=== PATIENT | female | born 1985 | race Caucasian/White ===

== ENCOUNTER → 2018-06-06 | Outpatient (CLI) | payer BC ==
[~2018-06-06] MED LIST: CONTRAST GIVEN. MC PRN; IOHEXOL 350 MG/ML 100 ML VIAL. IV ONE
--- NOTE | 2018-06-06 12:42 | RAD ---
EXAM: Head CT without contrast; CT angiogram of the head with contrast. HISTORY: Headache. Family history of aneurysm. TECHNIQUE: Computed tomographic images of the head were obtained prior to and following the administration of 90 cc Omnipaque 350 intravenous contrast. Three-dimensional maximum intensity projection images were obtained. *One or more of the following individualized dose reduction techniques were utilized for this examination: 1. Automated exposure control. 2. Adjustment of the mA and/or kV according to patient size. 3. Use of iterative reconstruction technique. COMPARISON: None. FINDINGS: The noncontrast images of the head demonstrate no acute or subacute hemorrhage. There is no mass effect or midline shift. There is no hydrocephalus. The smart-white matter differential pattern is intact. The orbits are unremarkable. There is a moderate left maxillary sinus mucous retention cyst. There is minimal focal mucosal thickening involving the right maxillary sinus. The mastoid air cells are clear. No suspicious calvarial lesion is seen. The angiogram images of the head demonstrate no evidence of hemodynamically significant stenosis or aneurysm. There are patent small posterior communicating arteries, a normal variant. The anterior communicating artery is patent and there is a third or early branching A2 segment, a normal variant. There is a tiny vessel coursing along the right A1 segment which may be due to a duplicated A1 segment or incidental venous contamination. The basilar artery is widely patent. The vertebral arteries are codominant. No suspicious enhancing lesion is seen. There are few small arachnoid granulations resulting in an incidental defects within the dural venous sinuses. No dural venous sinus thrombosis seen. There are prominent neck lymph nodes, likely physiologic or reactive in a patient of this age. No suspicious osseous lesion is seen. IMPRESSION: 1. No acute intracranial finding or evidence of hemodynamically significant stenosis or aneurysm involving the intracranial arteries. 2. Normal cerebral vascular anatomic variants, described above. PQRS Compliance Statement - Stenosis calculations for CT, MR and conventional angiography are based upon measurement of the distal ICA diameter in accordance with the NASCET methodology. Stenosis calculations for carotid ultrasound studies are derived from validated velocity criteria which are known to correlate with the NASCET methodology. Electronically signed by: Edith Ward MD (06/06/2018 12:38 PM) [place] [id number]
== END | disposition home or self-care (01) ==
LOC: CT 09:02
PROVIDERS: ATTEND Family Medicine
DX: G43.809 Other migraine, not intractable, without status migrainosus (principal); J34.1 Cyst and mucocele of nose and nasal sinus; Z82.49 Family history of ischemic heart disease and other diseases of the circulatory system
CPT/HCPCS: 70450; 70496; Q9967

== ENCOUNTER 2020-04-03 11:09 | Emergency (ER) | payer BC ==
[~2020-04-03] VITALS: Ht 170.2 cm; Wt 88.0 kg
[2020-04-03 12:00] LABS: BILIRUBIN,URINE NEGATIVE (NEG); CLARITY,URINE CLEAR; COLOR,URINE YELLOW; NITRITE,URINE NEGATIVE (NEG); PH,URINE 6.5 (<5.0-8.0); PROTEIN,URINE NEGATIVE (NEG-TRACE); UROBILINOGEN,URINE 0.2 mg/dL (0.2 mg/dL)
[2020-04-03] MEDS ORDERED: ONDANSETRON PF 4 MG/2 ML VIAL. IVP ONE (12:00)
[2020-04-03] MEDS ORDERED: IV NORMAL SALINE 1000ML BAG 1,000 ML IV ONE (12:00)
[2020-04-03] MEDS ORDERED: MORPHINE SULFATE 10 MG/ML VIAL. IV ONE (12:00)
[2020-04-03] MEDS ORDERED: FAMOTIDINE 20 MG/2 ML VIAL IVP ONE (12:00)
[2020-04-03 12:07] LABS: BARBITURATES NEG (NEG); BENZODIAZEPINES NEG (NEG); CANNABINOIDS NEG (NEG); COCAINE NEG (NEG); METHADONE NEG (NEG); OPIATES NEG (NEG); PHENCYCLIDINE NEG (NEG)
[2020-04-03 12:08] LABS: AMPHETAMINE/METHAMPHETAMINE NEG (NEG)
[2020-04-03 12:33] LABS: BASO % 1 % (0-3); EOS # 0.1 x10^3/uL (0.0-0.7); EOS % 3 % (0-3); HEMATOCRIT 39.8 % (36.0-47.0); HEMOGLOBIN 13.7 g/dL (12.0-15.5); LYMPH # 1.2 x10^3/uL (1.0-4.8); LYMPH % 21 % (24-48); MEAN CORPUSCULAR HEMOGLOBIN 30 pg (25-35); MEAN CORPUSCULAR HGB CONC 35 g/dL (31-37); MEAN CORPUSCULAR VOLUME 86 fL (79-100); MONO # 0.5 x10^3/uL (0.0-1.1); MONO % 10 % (0-9); NEUT # 3.5 x10^3/uL (1.8-7.7); NEUT % 65 % (31-73); PLATELET COUNT 270 x10^3/uL (140-400); RED BLOOD COUNT 4.64 x10^6/uL (3.50-5.40); RED CELL DISTRIBUTION WIDTH 13.5 % (11.5-14.5); WHITE BLOOD COUNT 5.4 x10^3/uL (4.0-11.0)
[2020-04-03 12:36] LABS: BACTERIA,URINE 0 /HPF (0-FEW); RBC,URINE 0 /HPF (0-2); WBC,URINE OCC /HPF (0-4)
[2020-04-03 12:41] LABS: CALCIUM 8.9 mg/dL (8.5-10.1); GFR 63.5; POTASSIUM 3.8 mmol/L (3.5-5.1)
[2020-04-03 12:47] LABS: ALBUMIN 3.7 g/dL (3.4-5.0); ALBUMIN/GLOBULIN RATIO 0.9 (1.0-1.7); MAGNESIUM 2.2 mg/dL (1.8-2.4); TOTAL BILIRUBIN 0.3 mg/dL (0.2-1.0); TOTAL PROTEIN 7.8 g/dL (6.4-8.2)
--- NOTE | 2020-04-03 12:53 | RAD ---
EXAM: CT Abdomen and Pelvis without IV contrast CLINICAL HISTORY: Abdominal pain COMPARISON: none TECHNIQUE: Helical CT of the abdomen and pelvis was performed without the administration of IV contrast. Axial, coronal and sagittal reformatted images were generated. ---PQRS compliance statement - One or more of the following individualized dose reduction techniques were utilized for this study: 1. Automated exposure control 2. Adjustment of the mA and/or kV according to patient size 3. Use of iterative reconstruction technique--- FINDINGS: Lack of intravenous contrast limits evaluation of solid organs, vasculature, and lymph nodes. Lower chest: 3 mm left lower lobe lung nodule (series 2 image 53). Moderate hiatal hernia. Abdomen and pelvis: Liver and biliary system: No focal liver lesion. Gallbladder is normal. No biliary ductal dilatation. Spleen: 12.1 cm in length. Pancreas: Unremarkable Adrenal glands: Unremarkable Kidneys: Kidneys are mildly atrophic bilaterally. Nonobstructing left interpolar renal calculus. There is distention of the renal pelvis bilaterally, greater on the right suggesting ureteropelvic junction stenosis. No hydroureter. Bladder is unremarkable. Lymph nodes/retroperitoneum: No abdominal or pelvic lymphadenopathy. Vessels: Aorta is normal in caliber. Bowel/Peritoneal cavity: Moderate colonic stool content is seen. No small or large bowel dilatation. No bowel obstruction. No abdominal or pelvic ascites. Abdominal wall: Trace fat-containing periumbilical hernia is seen. Bladder: Mild bladder wall thickening likely cystitis. Bones: Trabeculated lesion at the posterior elements of T10 may represent hemangioma. IMPRESSION: 1. 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 2. Nonobstructing left interpolar renal calculus. 3. Moderate colonic stool content can be correlated for possible constipation. 4. Spleen is borderline enlarged measuring 12.1 cm in length. 5. Moderate hiatal hernia. 6. 3 mm left lower lobe lung nodule.Per Fleischner Society guidelines for incidentally found solid nodules measuring less than 6 mm, no follow-up is necessary if patient is considered at low risk for lung cancer. If patient is considered to be at high risk, such as with history of smoking, then CT follow-up in about 12 months can be considered. Electronically signed by: Silvano Ramirez MD (04/03/2020 12:50 PM) [facility]
--- NOTE | 2020-04-03 14:28 | PHYS DOC ---
Past Medical History Past Medical History: Arthritis, Endometriosis, GERD, Hypertension, IBS, Migraines Additional Past Medical Histor: hernia Past Surgical History: Hysterectomy Additional Past Surgical Histo: vericose veins Smoking Status: Never Smoker Alcohol Use: None General Adult EDM: Chief Complaint: MULTIPLE COMPLAINTS HPI: HPI: Patient is a 34 year old female with history of hypertension, arthritis, acid reflux, migraine headaches, who presents to the ED today with multiple complaints. Patient states for the last 2 weeks she has had remittent episodes of nausea and vomiting as well as mild to moderate mid abdominal pain. Denies anything specifically exacerbating or relieving her pain. Patient also complaining of urgency frequency and dysuria. She also states she believes she is passing a kidney stone. She states she has had similar symptoms when passing a kidney stone. She states she also has some mild rectal pain when voiding. She says this is from kidney stone. Denies any cough or congestion, states she had intermittent episodes of fevers in the last 2 weeks. Review of Systems: Review of Systems: Constitutional: Reports fevers Eyes: Denies change in visual acuity. [] HENT: Denies nasal congestion or sore throat. [] Respiratory: Denies cough or shortness of breath. [] Cardiovascular: Denies chest pain or edema. [] GI: Reports abdominal pain with nausea vomiting, reports rectal pain, denies bloody stools or diarrhea. [] : Reports dysuria, urgency frequency. Musculoskeletal: Denies back pain or joint pain. [] Integument: Denies rash. [] Neurologic: Denies headache, focal weakness or sensory changes. [] Psychiatric: Denies depression or anxiety. [] Heart Score: Risk Factors: Risk Factors: DM, Current or recent (<one month) smoker, HTN, HLP, family history of CAD, obesity. Risk Scores: Score 0 - 3: 2.5% MACE over next 6 weeks - Discharge Home Score 4 - 6: 20.3% MACE over next 6 weeks - Admit for Clinical Observation Score 7 - 10: 72.7% MACE over next 6 weeks - Early Invasive Strategies Current Medications: Current Medications Medications (Trade) Dose Ordered Sig/Aime Start Time Stop Time Status Last Admin Dose Admin Famotidine (Pepcid Vial) 20 mg 1X ONCE 04/03/20 12:00 04/03/20 12:13 DC 04/03/20 12:42 20 MG Morphine Sulfate (Morphine Sulfate) 5 mg 1X ONCE 04/03/20 12:00 04/03/20 12:13 DC Ondansetron HCl (Zofran) 4 mg 1X ONCE 04/03/20 12:00 04/03/20 12:13 DC 04/03/20 12:42 4 MG Sodium Chloride 1,000 ml @ 1,000 mls/hr 1X ONCE 04/03/20 12:00 04/03/20 12:59 DC 04/03/20 12:42 1,000 MLS/HR Allergies: Allergies: Allergies Coded Allergies Type Severity Reaction Last Updated Verified cephalexin Allergy Unknown 04/03/20 Yes latex Allergy Unknown 06/06/18 Yes nitrofurantoin Allergy Unknown 04/03/20 Yes Physical Exam: PE: Constitutional: Well developed, well nourished, no acute distress, non-toxic appearance. [] HENT: Normocephalic, atraumatic, bilateral external ears normal, oropharynx moist, no oral exudates, nose normal. [] Eyes: PERRLA, EOMI, conjunctiva normal, no discharge. [] Neck: Normal range of motion, no tenderness, supple, no stridor. [] Cardiovascular:Heart rate regular rhythm, no murmur [] Lungs & Thorax: Bilateral breath sounds clear to auscultation [] Abdomen: Bowel sounds normal, soft, no tenderness, no masses, no pulsatile masses. [] Skin: Warm, dry, no erythema, no rash. [] Back: No tenderness, no CVA tenderness. [] Extremities: No tenderness, no cyanosis, no clubbing, ROM intact, no edema. [] Neurologic: Alert and oriented X 3, normal motor function, normal sensory function, no focal deficits noted. [] Psychologic: Flat affect Current Patient Data: Labs: Laboratory Tests Test 04/03/20 11:16 04/03/20 12:19 Urine Collection Type Unknown Urine Color Yellow Urine Clarity Clear Urine pH 6.5 (<5.0-8.0) Urine Specific [place] 1.010 (1.000-1.030) Urine Protein Negative mg/dL (NEG-TRACE) Urine Glucose (UA) Negative mg/dL (NEG) Urine Ketones (Stick) Negative mg/dL (NEG) Urine Blood Negative (NEG) Urine Nitrite Negative (NEG) Urine Bilirubin Negative (NEG) Urine Urobilinogen Dipstick 0.2 mg/dL (0.2 mg/dL) Urine Leukocyte Esterase Negative (NEG) Urine RBC 0 /HPF (0-2) Urine WBC Occ /HPF (0-4) Urine Squamous Epithelial Cells Many /LPF Urine Bacteria 0 /HPF (0-FEW) Urine Mucus Slight /LPF Urine Opiates Screen Neg (NEG) Urine Methadone Screen Neg (NEG) Urine Barbiturates Neg (NEG) Urine Phencyclidine Screen Neg (NEG) Urine Amphetamine/Methamphetamine Neg (NEG) Urine Benzodiazepines Screen Neg (NEG) Urine Cocaine Screen Neg (NEG) Urine Cannabinoids Screen Neg (NEG) Urine Ethyl Alcohol Neg (NEG) White Blood Count 5.4 x10^3/uL (4.0-11.0) Red Blood Count 4.64 x10^6/uL (3.50-5.40) Hemoglobin 13.7 g/dL (12.0-15.5) Hematocrit 39.8 % (36.0-47.0) Mean Corpuscular Volume 86 fL (79-100) Mean Corpuscular Hemoglobin 30 pg (25-35) Mean Corpuscular Hemoglobin Concent 35 g/dL (31-37) Red Cell Distribution Width 13.5 % (11.5-14.5) Platelet Count 270 x10^3/uL (140-400) Neutrophils (%) (Auto) 65 % (31-73) Lymphocytes (%) (Auto) 21 % (24-48) L Monocytes (%) (Auto) 10 % (0-9) H Eosinophils (%) (Auto) 3 % (0-3) Basophils (%) (Auto) 1 % (0-3) Neutrophils # (Auto) 3.5 x10^3/uL (1.8-7.7) Lymphocytes # (Auto) 1.2 x10^3/uL (1.0-4.8) Monocytes # (Auto) 0.5 x10^3/uL (0.0-1.1) Eosinophils # (Auto) 0.1 x10^3/uL (0.0-0.7) Basophils # (Auto) 0.0 x10^3/uL (0.0-0.2) Sodium Level 138 mmol/L (136-145) Potassium Level 3.8 mmol/L (3.5-5.1) Chloride Level 103 mmol/L (98-107) Carbon Dioxide Level 24 mmol/L (21-32) Anion Gap 11 (6-14) Blood Urea Nitrogen 8 mg/dL (7-20) Creatinine 1.0 mg/dL (0.6-1.0) Estimated GFR (Cockcroft-Gault) 63.5 BUN/Creatinine Ratio 8 (6-20) Glucose Level 87 mg/dL (70-99) Calcium Level 8.9 mg/dL (8.5-10.1) Magnesium Level 2.2 mg/dL (1.8-2.4) Total Bilirubin 0.3 mg/dL (0.2-1.0) Aspartate Amino Transferase (AST) 17 U/L (15-37) Alanine Aminotransferase (ALT) 16 U/L (14-59) Alkaline Phosphatase 68 U/L (46-116) Total Protein 7.8 g/dL (6.4-8.2) Albumin 3.7 g/dL (3.4-5.0) Albumin/Globulin Ratio 0.9 (1.0-1.7) L Lipase 130 U/L (73-393) Ethyl Alcohol Level < 10 mg/dL (0-10) Laboratory Tests 04/03/20 12:19 Laboratory Tests 04/03/20 12:19 Vital Signs: Vital Signs Date Time Temp Pulse Resp B/P (MAP) Pulse Ox O2 Delivery O2 Flow Rate FiO2 04/03/20 11:15 98.4 69 18 135/91 (106) 96 Room Air 98.4 EKG: EKG: [] Radiology/Procedures: Radiology/Procedures: []PROCEDURE: CT ABDOMEN PELVIS WO CONTRAST EXAM: CT Abdomen and Pelvis without IV contrast CLINICAL HISTORY: Abdominal pain COMPARISON: none TECHNIQUE: Helical CT of the abdomen and pelvis was performed without the administration of IV contrast. Axial, coronal and sagittal reformatted images were generated. ---PQRS compliance statement - One or more of the following individualized dose reduction techniques were utilized for this study: 1. Automated exposure control 2. Adjustment of the mA and/or kV according to patient size 3. Use of iterative reconstruction technique--- FINDINGS: Lack of intravenous contrast limits evaluation of solid organs, vasculature, and lymph nodes. Lower chest: 3 mm left lower lobe lung nodule (series 2 image 53). Moderate hiatal hernia. Abdomen and pelvis: Liver and biliary system: No focal liver lesion. Gallbladder is normal. No biliary ductal dilatation. Spleen: 12.1 cm in length. Pancreas: Unremarkable Adrenal glands: Unremarkable Kidneys: Kidneys are mildly atrophic bilaterally. Nonobstructing left interpolar renal calculus. There is distention of the renal pelvis bilaterally, greater on the right suggesting ureteropelvic junction stenosis. No hydroureter. Bladder is unremarkable. Lymph nodes/retroperitoneum: No abdominal or pelvic lymphadenopathy. Vessels: Aorta is normal in caliber. Bowel/Peritoneal cavity: Moderate colonic stool content is seen. No small or large bowel dilatation. No bowel obstruction. No abdominal or pelvic ascites. Abdominal wall: Trace fat-containing periumbilical hernia is seen. Bladder: Mild bladder wall thickening likely cystitis. Bones: Trabeculated lesion at the posterior elements of T10 may represent hemangioma. IMPRESSION: 1. 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 2. Nonobstructing left interpolar renal calculus. 3. Moderate colonic stool content can be correlated for possible constipation. 4. Spleen is borderline enlarged measuring 12.1 cm in length. 5. Moderate hiatal hernia. 6. 3 mm left lower lobe lung nodule.Per Fleischner Society guidelines for incidentally found solid nodules measuring less than 6 mm, no follow-up is necessary if patient is considered at low risk for lung cancer. If patient is considered to be at high risk, such as with history of smoking, then CT follow-up in about 12 months can be considered. Electronically signed by: Silvano Ramirez MD (04/03/2020 12:50 PM) [facility] DICTATED and SIGNED BY: SILVANO RAMIREZ MD DATE: 04/03/20 1257 Course & Med Decision Making: Course & Med Decision Making Pertinent Labs and Imaging studies reviewed. (See chart for details) This is a 34-year-old female patient presenting to the ED today with multiple complaints that have been going on for 2 weeks including nausea, vomiting, abdominal pain, rectal pain, urgency, frequency, dysuria. CBC with a normal WBC, CMP with no acute findings, urine analysis negative for infection though CT of the abdomen and pelvic was noted for cystitis and patient is complaining of urinary symptoms. We will send her home on Cipro. Urine was sent for culture. CT of the abdomen and pelvic was noted for- Nonobstructing left interpolar renal calculus. 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 Spleen is borderline enlarged measuring 12.1 cm in length. Encouraged to avoid contact sports. Moderate hiatal hernia follow up with general surgery. 3 mm left lower lobe lung nodule.Per Fleischner Society guidelines forincidentally found solid nodules measuring less than 6 mm, no follow-up is necessary if patient is considered at low risk for lung cancer. If patient is considered to be at high risk, such as with history of smoking, then CT follow-up in about 12 months can be considered. Patient lives in a house with people exposing her to second hand smoke. F/u with PCP. She was also tested for COVID-19. Dragon Disclaimer: Dragon Disclaimer: This electronic medical record was generated, in whole or in part, using a voice recognition dictation system. Departure Departure Impression: Primary Impression: Nausea and vomiting Qualified Codes: R11.2 - Nausea with vomiting, unspecified Additional Impressions: Person under investigation for COVID-19 Cystitis Hiatal hernia Kidney stone on left side Disposition: 01 DC HOME SELF CARE/HOMELESS Condition: STABLE Referrals: GERALDO ALMEIDA DO (PCP) follow up in one week LUIS FULLER MD follow up for hernia Patient Instructions: Hernia, Nausea and Vomiting, Urinary Tract Infection Additional Instructions: You were evaluated in the emergency room, please complete your prescribed antibiotics. Follow-up with your own doctor in 1 to 2 weeks. Also follow-up with a specialist provided. Follow up with a urologist as an out patient. Use [id number] medications for constipation including mag citrate today and tomorrow and MiraLAX every day. He can also use a stool softener. Come back to the ED at any point symptoms worsen. Scripts Prochlorperazine Maleate (Compazine) 10 Mg Tablet 1 TAB PO Q6HRS, #30 TAB 0 Refills Prov: KANDI LEUNG APRN 04/03/20 Ciprofloxacin Hcl (CIPRO) 500 Mg Tablet 1 TAB PO BID for 7 Days, #14 TAB 0 Refills Prov: VANDANAAKANDI LEAD SHIPPER 04/03/20 KANDI LEUNG APRN Apr 03, 2020 14:28
[2020-04-03 14:31] VITALS: BP 151/98
[2020-04-03] MEDS ORDERED: CIPR500T94 PO (14:46)
[2020-04-03] MEDS ORDERED: PROC10TA57 PO (14:46)
--- NOTE | 2020-04-05 18:01 | NUR ---
IP: Informed pt of negative COVID test. Pt verbalized understanding.
== END 2020-04-03 14:53 | disposition home or self-care (01) ==
LOC: ER 11:09
DX: N30.90 Cystitis, unspecified without hematuria (principal); K44.9 Diaphragmatic hernia without obstruction or gangrene; N20.0 Calculus of kidney; R11.2 Nausea with vomiting, unspecified; Z20.828 Contact with and (suspected) exposure to other viral communicable diseases; K21.9 Gastro-esophageal reflux disease without esophagitis; I10 Essential (primary) hypertension; K58.9 Irritable bowel syndrome, unspecified; Z98.890 Other specified postprocedural states; G43.909 Migraine, unspecified, not intractable, without status migrainosus; Z90.710 Acquired absence of both cervix and uterus; Z88.1 Allergy status to other antibiotic agents; Z91.040 Latex allergy status; Z88.8 Allergy status to other drugs, medicaments and biological substances
CPT/HCPCS: 36415; 74176; 80053; 80307; 81001; 83690; 83735; 85025; 96361; 96374; 96375; 99284; C9803; G0480; J2405; J3490; J7030; U0003

== ENCOUNTER 2021-02-05 10:46 | Emergency (ER) | payer BC ==
[~2021-02-05] VITALS: Ht 167.6 cm; Wt 95.4 kg
[~2021-02-05 10:46] MED LIST changes: +CIPR500T94 PO; -CONTRAST GIVEN. MC PRN; -IOHEXOL 350 MG/ML 100 ML VIAL. IV ONE; +PROC10TA57 PO
[2021-02-05] MEDS ORDERED: methylPREDNISolone SOD SUCC PF 125 MG/2 ML VIAL. IV ONE (11:45)
[2021-02-05] MEDS ORDERED: IV NORMAL SALINE 1000ML BAG 1,000 ML IV ONE (11:45)
[2021-02-05] MEDS ORDERED: KETOROLAC 30 MG/ML VIAL. IVP ONE (11:45)
[2021-02-05 11:57] LABS: BASO % 1 % (0-3); EOS # 0.3 x10^3/uL (0.0-0.7); EOS % 6 % (0-3); HEMATOCRIT 37.5 % (36.0-47.0); HEMOGLOBIN 13.3 g/dL (12.0-15.5); LYMPH # 0.9 x10^3/uL (1.0-4.8); LYMPH % 18 % (24-48); MEAN CORPUSCULAR HEMOGLOBIN 30 pg (25-35); MEAN CORPUSCULAR HGB CONC 35 g/dL (31-37); MEAN CORPUSCULAR VOLUME 85 fL (79-100); MONO # 0.6 x10^3/uL (0.0-1.1); MONO % 12 % (0-9); NEUT # 3.4 x10^3/uL (1.8-7.7); NEUT % 63 % (31-73); PLATELET COUNT 312 x10^3/uL (140-400); RED BLOOD COUNT 4.42 x10^6/uL (3.50-5.40); RED CELL DISTRIBUTION WIDTH 12.5 % (11.5-14.5); WHITE BLOOD COUNT 5.3 x10^3/uL (4.0-11.0)
[2021-02-05 11:58] LABS: BILIRUBIN,URINE NEGATIVE (NEG); CLARITY,URINE CLEAR; COLOR,URINE YELLOW; NITRITE,URINE NEGATIVE (NEG); PROTEIN,URINE NEGATIVE (NEG-TRACE); UROBILINOGEN,URINE 0.2 mg/dL (0.2 mg/dL)
[2021-02-05] MEDS ORDERED: IOHEXOL 350 MG/ML 100 ML VIAL. IV ONE (12:00)
[2021-02-05 12:03] LABS: BACTERIA,URINE FEW /HPF (0-FEW); RBC,URINE 0 /HPF (0-2); WBC,URINE RARE /HPF (0-4)
[2021-02-05 12:08] LABS: CALCIUM 8.7 mg/dL (8.5-10.1); CREATININE 1.3 mg/dL (0.6-1.0); GFR 46.6; POTASSIUM 3.7 mmol/L (3.5-5.1)
[2021-02-05 12:14] LABS: ALBUMIN 3.6 g/dL (3.4-5.0); ALBUMIN/GLOBULIN RATIO 0.8 (1.0-1.7); TOTAL BILIRUBIN 0.4 mg/dL (0.2-1.0); TOTAL PROTEIN 8.2 g/dL (6.4-8.2)
[2021-02-05] MEDS ORDERED: CONTRAST GIVEN. MC PRN (12:15)
[2021-02-05 12:18] LABS: BARBITURATES NEG (NEG); BENZODIAZEPINES NEG (NEG); CANNABINOIDS NEG (NEG); COCAINE NEG (NEG); METHADONE NEG (NEG); OPIATES NEG (NEG); PHENCYCLIDINE NEG (NEG)
[2021-02-05 12:20] LABS: AMPHETAMINE/METHAMPHETAMINE NEG (NEG)
--- NOTE | 2021-02-05 12:58 | RAD ---
CTA CHEST, CT ABDOMEN+PELVIS WO dated 02/05/2021 12:20 PM Indication:Reason: SOA, R/O PE: Flank pain. Comparison: CT abdomen and pelvis 04/03/2020. Technique: Initial noncontrast images were performed through the abdomen and pelvis. This was followe d by CTA acquisition through the chest using an infusion of 80 mL Omnipaque 350. MIP reconstructions were performed. One or more of the following individualized dose reduction techniques were utilized for this examinat ion: 1. Automated exposure control 2. Adjustment of the mA and/or kV according to patient size 3. Use of iterative reconstruction technique Findings: CT abdomen pelvis: The liver and spleen are homogeneous in density and normal in configuration. Evalu ation of the solid organs is somewhat limited by lack of IV contrast. The kidneys show no apparent ma ss. There is a 1 mm calcification in the mid left kidney. There are prominent renal pelves bilaterall y, but there does not appear to be ureteral dilatation. There was a similar appearance on the prior C T. The adrenal glands are not enlarged. The pancreas appears normal. No retroperitoneal or mesenteric adenopathy is seen. There is no apparent abdominal mass or inflammatory process. Images through the pelvis show no abnormality of the distal ureters or bladder. No pelvic or inguinal adenopathy is seen. There apparently has been prior hysterectomy. No adnexal abnormality is seen. Th ere is no separate pelvic mass or inflammatory process. CTA CHEST: There is mild dependent atelectasis and atelectasis adjacent to a hiatal hernia. The lungs otherwise are clear. The central airways show no obstruction. There are a few mildly prominent left axillary lymph nodes. No enlarged mediastinal or hilar nodes are seen. There is a moderate-sized hiat al hernia. There is no obvious breast abnormality. Evaluation of the pulmonary arterial tree shows moderate opacification of the vessels. No abnormal fi lling defect is seen extending to the subsegmental branch level. IMPRESSION: CT abdomen and pelvis: There is a small left renal calculus. No ureteral stone is seen. There continu es to be some dilatation of the renal pelves, similar to the prior study. This may be congenital. CTA CHEST: No pulmonary embolism or other acute abnormality. Electronically signed by: Mustapha Sanabria Jr., MD (02/05/2021 12:55 PM) [id number]
--- NOTE | 2021-02-05 13:24 | PHYS DOC ---
Past Medical History Past Medical History: Arthritis, Endometriosis, GERD, Hypertension, IBS, Migraines Additional Past Medical Histor: hernia,LUPUS,ARTHRITIS Past Surgical History: Hysterectomy Additional Past Surgical Histo: vericose veins Smoking Status: Never Smoker Alcohol Use: None General Adult EDM: Chief Complaint: OTHER COMPLAINTS HPI: HPI: Patient is a 35 year old female with history of hypertension, migraine headaches, kidney stones, acid reflux, who presents the ED today complaining of generalized pain throughout her body. Patient states she was diagnosed with lupus on Saturday last week. She states since then she has had pain. She states she saw the PCP on Saturday and was told she will be following up with a glass beveler. She states she was also told he could have recently passed a kidney stone. Patient states she was put on hydrocodone which she finished. Patient denies any nausea, vomiting, urgency, frequency. She is also complaining of shortness of breath that has been going on since Saturday when she was diagnosed with lupus. Denies any coughing congestion. She states she has received 3 Covid vaccines by [facility]. Review of Systems: Review of Systems: Constitutional: Denies fever or chills. [] Eyes: Denies change in visual acuity. [] HENT: Denies nasal congestion or sore throat. [] Respiratory: Reports shortness of breath. Denies cough Cardiovascular: Denies chest pain or edema. [] GI: Denies abdominal pain, nausea, vomiting, bloody stools or diarrhea. [] : Denies dysuria. [] Musculoskeletal: Reports pain to her entire back Integument: Denies rash. [] Neurologic: Denies headache, focal weakness or sensory changes. [] Psychiatric: Denies depression or anxiety. [] Heart Score: C/O Chest Pain: N/A Risk Factors: Risk Factors: DM, Current or recent (<one month) smoker, HTN, HLP, family history of CAD, obesity. Risk Scores: Score 0 - 3: 2.5% MACE over next 6 weeks - Discharge Home Score 4 - 6: 20.3% MACE over next 6 weeks - Admit for Clinical Observation Score 7 - 10: 72.7% MACE over next 6 weeks - Early Invasive Strategies Current Medications: Current Medications Medications (Trade) Dose Ordered Sig/Aime Start Time Stop Time Status Last Admin Dose Admin Info (CONTRAST GIVEN -- Rx MONITORING) 1 each PRN DAILY PRN 02/05/21 12:15 02/07/21 12:14 Iohexol (Omnipaque 350 Mg/ml) 100 ml 1X ONCE 02/05/21 12:00 02/05/21 12:02 DC 02/05/21 12:00 80 ML Ketorolac Tromethamine (Toradol 30mg Vial) 30 mg 1X ONCE 02/05/21 11:45 02/05/21 11:46 DC 02/05/21 11:50 30 MG Methylprednisolone Sodium Succinate (SOLU-Medrol 125MG VIAL) 125 mg 1X ONCE 02/05/21 11:45 02/05/21 11:46 DC 02/05/21 11:49 125 MG Sodium Chloride 1,000 ml @ 1,000 mls/hr 1X ONCE 02/05/21 11:45 02/05/21 12:44 DC 02/05/21 11:49 1,000 MLS/HR Allergies: Allergies: Allergies Coded Allergies Type Severity Reaction Last Updated Verified cephalexin Allergy Unknown 04/03/20 Yes latex Allergy Unknown 06/06/18 Yes nitrofurantoin Allergy Unknown 04/03/20 Yes Physical Exam: PE: Constitutional: Well developed, well nourished, no acute distress, non-toxic appearance. [] HENT: Normocephalic, atraumatic, bilateral external ears normal, oropharynx mois t, no oral exudates, nose normal. [] Eyes: PERRLA, EOMI, conjunctiva normal, no discharge. [] Neck: Normal range of motion, no tenderness, supple, no stridor. [] Cardiovascular:Heart rate regular rhythm, no murmur [] Lungs & Thorax: Bilateral breath sounds clear to auscultation [] Abdomen: Bowel sounds normal, soft, no tenderness, no masses, no pulsatile masses. [] Skin: Warm, dry, no erythema, no rash. [] Back: No tenderness, no CVA tenderness. [] Extremities: No tenderness, no cyanosis, no clubbing, ROM intact, no edema. [] Neurologic: Alert and oriented X 3, normal motor function, normal sensory function, no focal deficits noted. [] Psychologic: Affect normal, judgement normal, mood normal. [] Current Patient Data: Labs: Laboratory Tests Test 02/05/21 11:06 02/05/21 11:11 02/05/21 11:45 Urine Collection Type Unknown Urine Color Yellow Urine Clarity Clear Urine pH 7.0 (<5.0-8.0) Urine Specific [place] <=1.005 (1.000-1.030) Urine Protein Negative mg/dL (NEG-TRACE) Urine Glucose (UA) Negative mg/dL (NEG) Urine Ketones (Stick) Negative mg/dL (NEG) Urine Blood Negative (NEG) Urine Nitrite Negative (NEG) Urine Bilirubin Negative (NEG) Urine Urobilinogen Dipstick 0.2 mg/dL (0.2 mg/dL) Urine Leukocyte Esterase Negative (NEG) Urine RBC 0 /HPF (0-2) Urine WBC Rare /HPF (0-4) Urine Squamous Epithelial Cells Mod /LPF Urine Bacteria Few /HPF (0-FEW) Urine Opiates Screen Neg (NEG) Urine Methadone Screen Neg (NEG) Urine Barbiturates Neg (NEG) Urine Phencyclidine Screen Neg (NEG) Urine Amphetamine/Methamphetamine Neg (NEG) Urine Benzodiazepines Screen Neg (NEG) Urine Cocaine Screen Neg (NEG) Urine Cannabinoids Screen Neg (NEG) Urine Ethyl Alcohol Neg (NEG) POC Urine HCG, Qualitative Hcg negative (Negative) White Blood Count 5.3 x10^3/uL (4.0-11.0) Red Blood Count 4.42 x10^6/uL (3.50-5.40) Hemoglobin 13.3 g/dL (12.0-15.5) Hematocrit 37.5 % (36.0-47.0) Mean Corpuscular Volume 85 fL (79-100) Mean Corpuscular Hemoglobin 30 pg (25-35) Mean Corpuscular Hemoglobin Concent 35 g/dL (31-37) Red Cell Distribution Width 12.5 % (11.5-14.5) Platelet Count 312 x10^3/uL (140-400) Neutrophils (%) (Auto) 63 % (31-73) Lymphocytes (%) (Auto) 18 % (24-48) L Monocytes (%) (Auto) 12 % (0-9) H Eosinophils (%) (Auto) 6 % (0-3) H Basophils (%) (Auto) 1 % (0-3) Neutrophils # (Auto) 3.4 x10^3/uL (1.8-7.7) Lymphocytes # (Auto) 0.9 x10^3/uL (1.0-4.8) L Monocytes # (Auto) 0.6 x10^3/uL (0.0-1.1) Eosinophils # (Auto) 0.3 x10^3/uL (0.0-0.7) Basophils # (Auto) 0.0 x10^3/uL (0.0-0.2) Sodium Level 136 mmol/L (136-145) Potassium Level 3.7 mmol/L (3.5-5.1) Chloride Level 100 mmol/L (98-107) Carbon Dioxide Level 27 mmol/L (21-32) Anion Gap 9 (6-14) Blood Urea Nitrogen 11 mg/dL (7-20) Creatinine 1.3 mg/dL (0.6-1.0) H Estimated GFR (Cockcroft-Gault) 46.6 BUN/Creatinine Ratio 8 (6-20) Glucose Level 87 mg/dL (70-99) Calcium Level 8.7 mg/dL (8.5-10.1) Total Bilirubin 0.4 mg/dL (0.2-1.0) Aspartate Amino Transferase (AST) 18 U/L (15-37) Alanine Aminotransferase (ALT) 30 U/L (14-59) Alkaline Phosphatase 86 U/L (46-116) Total Protein 8.2 g/dL (6.4-8.2) Albumin 3.6 g/dL (3.4-5.0) Albumin/Globulin Ratio 0.8 (1.0-1.7) L Ethyl Alcohol Level < 10 mg/dL (0-10) Laboratory Tests 02/05/21 11:45 Laboratory Tests 02/05/21 11:45 Vital Signs: Vital Signs Date Time Temp Pulse Resp B/P (MAP) Pulse Ox O2 Delivery O2 Flow Rate FiO2 02/05/21 11:15 98.3 99 20 113/77 (89) 98 Room Air 98.3 EKG: EKG: [] Radiology/Procedures: Radiology/Procedures: []PROCEDURE: CT ANGIOGRAPHY CHEST CTA CHEST, CT ABDOMEN+PELVIS WO dated 02/05/2021 12:20 PM Indication:Reason: SOA, R/O PE: Flank pain. Comparison: CT abdomen and pelvis 04/03/2020. Technique: Initial noncontrast images were performed through the abdomen and pelvis. This was followed by CTA acquisition through the chest using an infusion of 80 mL Omnipaque 350. MIP reconstructions were performed. One or more of the following individualized dose reduction techniques were utilized for this examination: 1. Automated exposure control 2. Adjustment of the mA and/or kV according to patient size 3. Use of iterative reconstruction technique Findings: CT abdomen pelvis: The liver and spleen are homogeneous in density and normal in configuration. Evaluation of the solid organs is somewhat limited by lack of IV contrast. The kidneys show no apparent mass. There is a 1 mm calcification in the mid left kidney. There are prominent renal pelves bilaterally, but there does not appear to be ureteral dilatation. There was a similar appearance on the prior CT. The adrenal glands are not enlarged. The pancreas appears normal. No retroperitoneal or mesenteric adenopathy is seen. There is no apparent abdominal mass or inflammatory process. Images through the pelvis show no abnormality of the distal ureters or bladder. No pelvic or inguinal adenopathy is seen. There apparently has been prior hysterectomy. No adnexal abnormality is seen. There is no separate pelvic mass or inflammatory process. CTA CHEST: There is mild dependent atelectasis and atelectasis adjacent to a hiatal hernia. The lungs otherwise are clear. The central airways show no obstruction. There are a few mildly prominent left axillary lymph nodes. No enlarged mediastinal or hilar nodes are seen. There is a moderate-sized hiatal hernia. There is no obvious breast abnormality. Evaluation of the pulmonary arterial tree shows moderate opacification of the vessels. No abnormal filling defect is seen extending to the subsegmental branch level. IMPRESSION: CT abdomen and pelvis: There is a small left renal calculus. No ureteral stone i s seen. There continues to be some dilatation of the renal pelves, similar to the prior study. This may be congenital. CTA CHEST: No pulmonary embolism or other acute abnormality. Electronically signed by: Marcus Yoon Jr., MD (02/05/2021 12:55 PM) [id number] DICTATED and SIGNED BY: MARCUS YOON Jr, MD DATE: 02/05/21 [id number] PROCEDURE: CT ABDOMEN PELVIS WO CONTRAST CTA CHEST, CT ABDOMEN+PELVIS WO dated 02/05/2021 12:20 PM Indication:Reason: SOA, R/O PE: Flank pain. Comparison: CT abdomen and pelvis 04/03/2020. Technique: Initial noncontrast images were performed through the abdomen and pelvis. This was followed by CTA acquisition through the chest using an infusion of 80 mL Omnipaque 350. MIP reconstructions were performed. One or more of the following individualized dose reduction techniques were utilized for this examination: 1. Automated exposure control 2. Adjustment of the mA and/or kV according to patient size 3. Use of iterative reconstruction technique Findings: CT abdomen pelvis: The liver and spleen are homogeneous in density and normal in configuration. Evaluation of the solid organs is somewhat limited by lack of IV contrast. The kidneys show no apparent mass. There is a 1 mm calcification in the mid left kidney. There are prominent renal pelves bilaterally, but there does not appear to be ureteral dilatation. There was a similar appearance on the prior CT. The adrenal glands are not enlarged. The pancreas appears normal. No retroperitoneal or mesenteric adenopathy is seen. There is no apparent abdominal mass or inflammatory process. Images through the pelvis show no abnormality of the distal ureters or bladder. No pelvic or inguinal adenopathy is seen. There apparently has been prior hy sterectomy. No adnexal abnormality is seen. There is no separate pelvic mass or inflammatory process. CTA CHEST: There is mild dependent atelectasis and atelectasis adjacent to a hiatal hernia. The lungs otherwise are clear. The central airways show no obstruction. There are a few mildly prominent left axillary lymph nodes. No enlarged mediastinal or hilar nodes are seen. There is a moderate-sized hiatal hernia. There is no obvious breast abnormality. Evaluation of the pulmonary arterial tree shows moderate opacification of the vessels. No abnormal filling defect is seen extending to the subsegmental branch level. IMPRESSION: CT abdomen and pelvis: There is a small left renal calculus. No ureteral stone is seen. There continues to be some dilatation of the renal pelves, similar to the prior study. This may be congenital. CTA CHEST: No pulmonary embolism or other acute abnormality. Electronically signed by: Marcus Yoon Jr., MD (02/05/2021 12:55 PM) [id number] DICTATED and SIGNED BY: MARCUS YOON Jr, MD DATE: 02/05/21 [id number] 0 Course & Med Decision Making: Course & Med Decision Making Pertinent Labs and Imaging studies reviewed. (See chart for details) This a 35-year-old female patient presented to the ED today with complaints of generalized pain throughout her body worse on the back, and shortness of breath, symptoms began on Saturday after being diagnosed with lupus. CBC CMP with no acute findings. UA negative for infection. CT of the abdomen and pelvis was negative for any acute findings, noted for small left renal stone. No ureteral stone is seen. Continued dilatation of the renal pelves, similar to the prior study. This may be congenital. Discharge to home. Follow-up with PCP and glass beveler. Emmanuel Disclaimer: Emmanuel Disclaimer: This electronic medical record was generated, in whole or in part, using a voice recognition dictation system. Departure Departure Impression: Primary Impression: Kidney stone on left side Additional Impressions: Shortness of breath Generalized pain Disposition: HOME / SELF CARE / HOMELESS Condition: STABLE Referrals: GERALDO ALMEIDA DO (PCP) follow up in the course of this week Patient Instructions: Kidney Stones, [id number], Musculoskeletal Pain Additional Instructions: You were evaluated in the emergency room, you were noted to have left renal stone. Please follow-up with your primary care doctor and glass beveler. Scripts Hydrocodone Bit/Acetaminophen (HYDROCODONE-APAP 5-325 ) 1 Tab Tablet 1 TAB PO PRN Q6HRS PRN for PAIN, #14 TAB 0 Refills Prov: KANDI LEUNG APRN 02/05/21 KANDI LEUNG APRN Feb 05, 2021 13:23
[2021-02-05 13:34] VITALS: BP 102/66
[2021-02-05] MEDS ORDERED: HYDR-2761 PO (13:50)
== END 2021-02-05 13:54 | disposition home or self-care (01) ==
LOC: ER 10:46
DX: N20.0 Calculus of kidney (principal); R06.02 Shortness of breath; M79.10 Myalgia, unspecified site; R07.89 Other chest pain; K21.9 Gastro-esophageal reflux disease without esophagitis; I10 Essential (primary) hypertension; K58.9 Irritable bowel syndrome, unspecified; G43.909 Migraine, unspecified, not intractable, without status migrainosus; Z88.1 Allergy status to other antibiotic agents; Z91.040 Latex allergy status; Z88.8 Allergy status to other drugs, medicaments and biological substances
CPT/HCPCS: 36415; 71275; 74176; 80053; 80307; 81001; 81025; 85025; 96361; 96374; 96375; 99285; G0480; J1885; J2930; J7030; Q9967